=== PATIENT | male | born 1930 | race Caucasian/White ===

== ENCOUNTER → 2016-08-05 | Outpatient (CLI) | payer MEDICARE, OTHER ==
[~2016-08-05] MED LIST: ALIGN; AMOXICILLIN 8751 TAB PO; ARICEPT10 MG PO; ASPIRIN 32325 MG/TAB PO; ATIVAN 1MG T1 MG/TAB PO; BENEFIBER; BENEFIBER PO; CARDI-OMEGA1000 MG PO; CELEXA 20MG20 MG/TAB PO; CENTRUM SILVER1 TA1 PO; CLEOCIN HCL300 MG PO; COLACE 100100 MG/CAP PO; CYMBALTA 30MG30 MG PO; CYMBALTA 60MG60 MG PO; DULCOLAX S10 MG/SUPP RC; ENSURE 237 ML237 ML PO; FIBER; FIBER CHOICE1 CTB PO; FISH OIL1 IU PO; FISH OIL1000 MG PO; GENTLE LAXATIVE10 MG RC; ICAP; ICAPS MV1 TAB PO; LACTAID3000 U PO; LAMICTAL 100MG100 MG PO; LAMICTAL 25MG T25 MG PO; LAMICTAL150 MG PO; LEVAQUIN 5500 MG/TA1 PO; LIPITOR 10MG10 MG PO; LITHIUM CARBON300 MG PO; LYRICA 25MG CAP25 MG PO; LYRICA 50MG CAP50 MG PO; LYRICA 75MG CAP75 MG PO; LYRICA75 MG PO; METAMUCIL1 PDR; MIRALAX PA17 GM/Dose PO; MIRALAX238G PO; MS CONTIN 330 MG/TAB PO; MULTI VITAMINS1 TAB PO; MULTIPLE VITAMI1 CAP PO; MYRBETR25MG PO; NAMENDA 10MG TA10 MG PO; NEURONTIN100 MG/CAP PO; NEURONTIN300 MG/CAP PO; NIACIN500 M3 PO; NIACOR500 MG PO; NORCO 325 MG-51 TAB PO; OMEGA 31000 MG PO; PERIDEX (CHLOR480 ML MM; PREDNISONE20 MG PO; PRILOSEC 20MG20 MG PO; SEROQUEL 2525 MG/TAB PO; SYNTHROID 0.0.025 MG PO; TYLENOL 325MG325 MG PO; TYLENOL 500MG500 MG PO; TYLENOL EXTRA500 M1 PO; ULTRAM 50MG TAB50 MG PO; ULTRAM ER100 MG PO; VITAMIN C BUFF500 MG PO; VITAMIN C500 MG PO; VITAMINC500CH PO; VOLTAREN GEL 1%1 TU TP; WELLBUTRIN SR150 M1 PO; WELLBUTRIN SR150 MG PO; WELLBUTRIN XL150 MG PO; WELLBUTRIN XL300 M1 PO; ZITHROMAX 250M250 MG PO; ZOCOR 20MG20 MG PO; ZOFRAN ODT4 MG PO; [UNRECOGNIZED DRUG - CODE] PO
== END ==
LOC: BHSO 13:13
DX: F31.73 Bipolar disorder, in partial remission, most recent episode manic (principal)

== ENCOUNTER → 2016-08-05 | Outpatient (CLI) | payer MEDICARE, OTHER | LOC: COL.RAD 14:45 | DX: R14.0 Abdominal distension (gaseous) (principal) ==

== ENCOUNTER 2016-09-01 17:39 | Emergency (ER) | payer MEDICARE, OTHER ==
[~2016-09-01] VITALS: Ht 172.7 cm; Wt 72.7 kg
[~2016-09-01 17:39] MED LIST changes: -ALIGN; -ATIVAN 1MG T1 MG/TAB PO; -BENEFIBER; -CLEOCIN HCL300 MG PO; -FISH OIL1000 MG PO; -LAMICTAL150 MG PO; -LEVAQUIN 5500 MG/TA1 PO; -MIRALAX238G PO; -NEURONTIN100 MG/CAP PO; -NEURONTIN300 MG/CAP PO; -NORCO 325 MG-51 TAB PO; -PERIDEX (CHLOR480 ML MM; -SEROQUEL 2525 MG/TAB PO; -VOLTAREN GEL 1%1 TU TP; -ZITHROMAX 250M250 MG PO
[2016-09-01 17:44] VITALS: TEMP 98.3
[2016-09-01 18:24] LABS: BASO # 0.1 (0.0-0.2); BASO % 0.8 % (0.0-2.0); EOS # 0.5 (0.0-0.7); EOS % 4.6 % (0-4.0); GRAN # 7.7 (1.4-6.5); HEMATOCRIT 42.7 % (42.0-52.0); HEMOGLOBIN 13.8 g/dl (13.5-18.0); LYMPH # 2.1 (1.2-3.4); LYMPH % 18.2 % (20.0-51.0); MEAN CELL VOLUME 95 fl (80.0-100.0); MEAN CORPUSCULAR HEMOGLOBIN 31 pg (27.0-31.0); MEAN CORPUSCULAR HGB CONC 32 g/dl (33.0-37.0); MEAN PLATELET VOLUME 9.1 fl (7.4-10.4); MONO # 0.9 (0.1-0.6); MONO % 7.7 % (1.7-9.3); PLATELET COUNT 470 K/mm3 (130-400); RED BLOOD COUNT 4.52 M/mm3 (4.20-5.60); REDCELL DISTRIBUTION WIDTH-CV 14.3 % (11.5-14.5); WHITE BLOOD COUNT 11.4 K/mm3 (4.8-10.8)
[2016-09-01 18:34] LABS: ADJUSTED CALCIUM 9.4 mg/dL (8.4-10.2); ALANINE AMINOTRANSFERASE 27 U/L (21-72); ALBUMIN 3.7 gm/dL (3.5-5.0); ALKALINE PHOSPHATASE 88 U/L (50-136); ANION GAP 15 mmol/L (7-16); BILIRUBIN,TOTAL 0.6 mg/dL (0.0-1.0); BLOOD UREA NITROGEN 26 mg/dL (9-20); CALCIUM 9.2 mg/dL (8.4-10.2); CARBON DIOXIDE 26 mmol/L (22-30); CHLORIDE 101 mmol/L (98-107); CREATININE, serum 0.83 mg/dL (0.66-1.25); GLUCOSE 120 mg/dL (74-106); LIPASE 17 U/L (23-300); POTASSIUM 3.9 mmol/L (3.4-5.0); SODIUM 142 mmol/L (137-145); TOTAL PROTEIN 7.2 gm/dL (6.4-8.2)
[2016-09-01] MEDS ORDERED: NEURONTIN100 MG/CAP PO (18:36)
[2016-09-01] MEDS ORDERED: SEROQUEL 2525 MG/TAB PO (18:41)
[2016-09-01] MEDS ORDERED: WELLBUTRIN XL300 M1 PO (18:41)
[2016-09-01 18:46] LABS: TROPONIN-I < 0.012 ng/mL (0.000-0.034)
[2016-09-01 19:59] LABS: PH 5 (5-8); SQUAMOUS EPITHELIAL 0-2 /hpf; URINE APPEARANCE Hazy; URINE BACTERIA None Seen /hpf; URINE BILIRUBIN Negative (NEGATIVE); URINE BLOOD Negative (NEGATIVE); URINE COLOR Amber; URINE GLUCOSE Negative (NEGATIVE); URINE KETONE Negative (NEGATIVE); URINE RBC 0-2 /hpf; URINE UROBILINOGEN Negative (NEGATIVE); URINE WBC 0-2 /hpf
[2016-09-01 22:50] VITALS: PULSE 60
[2016-09-01 22:51] LABS: CEREBROSPINAL TUBE #1; CSF COLOR PINK
[2016-09-01 22:52] LABS: CSF APPEARANCE HAZY
[2016-09-01 22:53] LABS: CEREBROSPINAL TUBE #4; CSF APPEARANCE CLEAR; CSF COLOR COLORLESS
[2016-09-02 02:30] VITALS: BP 124/90
== END 2016-09-02 02:51 ==
LOC: COL.ER 17:39
PROVIDERS: Emergency Medicine
DX: M54.2 Cervicalgia (principal); R51 Headache; R45.4 Irritability and anger; T40.4X6A Underdosing of other synthetic narcotics, initial encounter; M54.9 Dorsalgia, unspecified; Z86.73 Personal history of transient ischemic attack (TIA), and cerebral infarction without residual deficits; Z91.138 Patient's unintentional underdosing of medication regimen for other reason; Y92.129 Unspecified place in nursing home as the place of occurrence of the external cause; F03.90 Unspecified dementia, unspecified severity, without behavioral disturbance, psychotic disturbance, mood disturbance, and anxiety
CPT/HCPCS: J1170; J1885; J7030

== ENCOUNTER 2016-09-27 18:38 | Inpatient (IN) | payer MEDICARE, OTHER ==
[~2016-09-27] VITALS: Ht 172.7 cm; Wt 85.0 kg
[~2016-09-27 18:38] MED LIST changes: +NEURONTIN100 MG/CAP PO; +SEROQUEL 2525 MG/TAB PO
[2016-09-27 19:20] LABS: BASO # 0.1 (0.0-0.2); BASO % 0.6 % (0.0-2.0); EOS # 0.8 (0.0-0.7); EOS % 5.8 % (0-4.0); GRAN # 10.8 (1.4-6.5); GRAN % 77.3 % (42.2-75.2); HEMATOCRIT 40.3 % (42.0-52.0); HEMOGLOBIN 12.6 g/dl (13.5-18.0); LYMPH # 1.2 (1.2-3.4); LYMPH % 8.8 % (20.0-51.0); MEAN CELL VOLUME 97 fl (80.0-100.0); MEAN CORPUSCULAR HEMOGLOBIN 30 pg (27.0-31.0); MEAN CORPUSCULAR HGB CONC 31 g/dl (33.0-37.0); MEAN PLATELET VOLUME 9.1 fl (7.4-10.4); MONO % 7.1 % (1.7-9.3); PLATELET COUNT 369 K/mm3 (130-400); RED BLOOD COUNT 4.17 M/mm3 (4.20-5.60)
[2016-09-27] MEDS ORDERED: NORCO 325 MG-51 TAB PO (19:23)
[2016-09-27 19:24] LABS: PH 5 (5-8); SQUAMOUS EPITHELIAL 0-2 /hpf; URINE APPEARANCE Clear; URINE BACTERIA None Seen /hpf; URINE BILIRUBIN Negative (NEGATIVE); URINE BLOOD Negative (NEGATIVE); URINE COLOR Yellow; URINE GLUCOSE Negative (NEGATIVE); URINE KETONE Negative (NEGATIVE); URINE RBC 0-2 /hpf; URINE UROBILINOGEN Negative (NEGATIVE); URINE WBC 0-2 /hpf
[2016-09-27] MEDS ORDERED: ATIVAN 1MG T1 MG/TAB PO (19:24)
[2016-09-27] MEDS ORDERED: ALIGN (19:28)
[2016-09-27] MEDS ORDERED: BENEFIBER (19:29)
[2016-09-27 19:31] LABS: ADJUSTED CALCIUM 9.6 mg/dL (8.4-10.2); ALANINE AMINOTRANSFERASE 26 U/L (21-72); ALBUMIN 3.5 gm/dL (3.5-5.0); ALKALINE PHOSPHATASE 79 U/L (50-136); ANION GAP 11 mmol/L (7-16); BILIRUBIN,TOTAL 0.5 mg/dL (0.0-1.0); BLOOD UREA NITROGEN 28 mg/dL (9-20); C-REACTIVE PROTEIN 4.5 mg/dL (0.0-0.9); CALCIUM 9.2 mg/dL (8.4-10.2); CARBON DIOXIDE 33 mmol/L (22-30); CHLORIDE 104 mmol/L (98-107); CREATININE, serum 1.02 mg/dL (0.66-1.25); GLUCOSE 107 mg/dL (74-106); POTASSIUM 4.5 mmol/L (3.4-5.0); SODIUM 147 mmol/L (137-145)
[2016-09-27] MEDS ORDERED: ENSURE 237 ML237 ML PO (19:39)
[2016-09-27 19:42] LABS: TROPONIN-I < 0.012 ng/mL (0.000-0.034)
[2016-09-27 23:29] VITALS: BP 132/52; PULSE 61; TEMP 98.2
[2016-09-28 03:37] VITALS: BP 122/95; PULSE 59; TEMP 98
[2016-09-28] MEDS ORDERED: NEURONTIN300 MG/CAP PO (06:17)
[2016-09-28] MEDS ORDERED: LAMICTAL150 MG PO (06:21)
[2016-09-28] MEDS ORDERED: ARICEPT10 MG PO (06:30)
[2016-09-28] MEDS ORDERED: FISH OIL1000 MG PO (06:31)
[2016-09-28 07:43] LABS: BASO # 0.1 (0.0-0.2); BASO % 0.6 % (0.0-2.0); EOS # 0.9 (0.0-0.7); EOS % 10.9 % (0-4.0); GRAN # 5.2 (1.4-6.5); GRAN % 61.7 % (42.2-75.2); LYMPH # 1.4 (1.2-3.4); LYMPH % 16.7 % (20.0-51.0); MEAN CELL VOLUME 99 fl (80.0-100.0); MEAN CORPUSCULAR HGB CONC 31 g/dl (33.0-37.0); MEAN PLATELET VOLUME 9.2 fl (7.4-10.4); MONO # 0.8 (0.1-0.6); MONO % 9.5 % (1.7-9.3); PLATELET COUNT 330 K/mm3 (130-400); RED BLOOD COUNT 3.65 M/mm3 (4.20-5.60); REDCELL DISTRIBUTION WIDTH-CV 15.3 % (11.5-14.5); WHITE BLOOD COUNT 8.5 K/mm3 (4.8-10.8)
[2016-09-28 07:46] VITALS: BP 135/57; PULSE 59; TEMP 97.6
[2016-09-28 08:01] LABS: CALCIUM 8.5 mg/dL (8.4-10.2); CREATININE, serum 0.94 mg/dL (0.66-1.25); POTASSIUM 4.1 mmol/L (3.4-5.0)
[2016-09-28 08:12] LABS: HEMATOCRIT 36.2 % (42.0-52.0); HEMOGLOBIN 11.1 g/dl (13.5-18.0); MEAN CORPUSCULAR HEMOGLOBIN 30 pg (27.0-31.0)
[2016-09-28 11:36] VITALS: BP 131/55; PULSE 60; TEMP 97.5
[2016-09-28 15:58] VITALS: BP 124/56; PULSE 59; TEMP 97.4
[2016-09-28 20:08] VITALS: BP 143/69; PULSE 60; TEMP 97.6
[2016-09-28 23:43] VITALS: BP 160/70; PULSE 60; TEMP 97.7
[2016-09-29 03:41] VITALS: BP 158/70; PULSE 65; TEMP 97.7
[2016-09-29 07:31] VITALS: BP 149/60; PULSE 61; TEMP 98.3
[2016-09-29 11:52] VITALS: BP 114/52; PULSE 59; TEMP 98
[2016-09-29] MEDS ORDERED: NEURONTIN300 MG/CAP PO (12:52)
[2016-09-29] MEDS ORDERED: MIRALAX238G PO (12:54)
[2016-09-29] MEDS ORDERED: LEVAQUIN 5500 MG/TA1 PO (13:33)
== END 2016-09-29 15:54 | DRG 194 ==
LOC: COL.ER 18:38 → MEDICAL 21:28
PROVIDERS: Emergency Medicine; Family Medicine
DX: J18.9 Pneumonia, unspecified organism (principal); F05 Delirium due to known physiological condition; Z95.0 Presence of cardiac pacemaker; F03.90 Unspecified dementia, unspecified severity, without behavioral disturbance, psychotic disturbance, mood disturbance, and anxiety; F31.9 Bipolar disorder, unspecified; M47.9 Spondylosis, unspecified; G89.29 Other chronic pain; G62.9 Polyneuropathy, unspecified; K59.00 Constipation, unspecified
CPT/HCPCS: 99223-AI; 99233-AI; 99239; J1650; J1956; J2543; J3370; J7030; J7050

== ENCOUNTER → 2016-10-07 | Outpatient (CLI) | payer MEDICARE, OTHER ==
[~2016-10-07] MED LIST changes: +ALIGN; +ATIVAN 1MG T1 MG/TAB PO; +BENEFIBER; +CLEOCIN HCL300 MG PO; +FISH OIL1000 MG PO; +LAMICTAL150 MG PO; +LEVAQUIN 5500 MG/TA1 PO; +MIRALAX238G PO; +NEURONTIN300 MG/CAP PO; +NORCO 325 MG-51 TAB PO; +PERIDEX (CHLOR480 ML MM; +VOLTAREN GEL 1%1 TU TP; +ZITHROMAX 250M250 MG PO
== END ==
LOC: BHSO 10:41
DX: F06.32 Mood disorder due to known physiological condition with major depressive-like episode (principal)

== ENCOUNTER → 2016-10-14 | Outpatient (CLI) | payer MEDICARE, OTHER | LOC: MHCPAIN 09:45 | DX: G89.29 Other chronic pain (principal); M47.812 Spondylosis without myelopathy or radiculopathy, cervical region; M54.12 Radiculopathy, cervical region | CPT/HCPCS: G0463 ==

== ENCOUNTER 2016-10-16 12:16 | Day surgery (SDC) | payer MEDICARE, OTHER ==
[~2016-10-16] VITALS: Ht 172.7 cm; Wt 83.2 kg
[2016-10-16] VITALS (7 sets, daily range): BP systolic 137–152; BP diastolic 58–68; PULSE 58–60; TEMP 97.2–98.5
[~2016-10-16 12:16] MED LIST changes: -CLEOCIN HCL300 MG PO; -PERIDEX (CHLOR480 ML MM; -VOLTAREN GEL 1%1 TU TP; -ZITHROMAX 250M250 MG PO
[2016-10-16] MEDS ORDERED: NEURONTIN100 MG/CAP PO (14:38)
[2016-10-16] MEDS ORDERED: DULCOLAX S10 MG/SUPP RC (14:41)
[2016-10-16] MEDS ORDERED: PERIDEX (CHLOR480 ML MM (14:59)
[2016-10-16] MEDS ORDERED: VOLTAREN GEL 1%1 TU TP (15:18)
== END 2016-10-16 19:00 ==
LOC: SDCO 12:16 → SURG 17:00 → SDCO 19:00
DX: K02.9 Dental caries, unspecified (principal); Z85.46 Personal history of malignant neoplasm of prostate; F31.9 Bipolar disorder, unspecified; G89.29 Other chronic pain; M54.2 Cervicalgia; F03.90 Unspecified dementia, unspecified severity, without behavioral disturbance, psychotic disturbance, mood disturbance, and anxiety; I49.9 Cardiac arrhythmia, unspecified
CPT/HCPCS: OP; J0360; J1100; J1720; J1885; J2405; J2710; J3010

== ENCOUNTER 2016-11-12 12:38 | Observation (INO) | payer MEDICARE, OTHER ==
[~2016-11-12] VITALS: Ht 172.7 cm; Wt 81.2 kg
[~2016-11-12 12:38] MED LIST changes: +PERIDEX (CHLOR480 ML MM; +VOLTAREN GEL 1%1 TU TP
[2016-11-12] MEDS ORDERED: NORCO 325 MG-51 TAB PO (13:16)
[2016-11-12] MEDS ORDERED: NEURONTIN100 MG/CAP PO (13:24)
[2016-11-12 14:04] LABS: BASO # 0.1 (0.0-0.2); BASO % 0.4 % (0.0-2.0); EOS # 0.7 (0.0-0.7); GRAN % 82.7 % (42.2-75.2); HEMATOCRIT 47.3 % (42.0-52.0); LYMPH % 6.1 % (20.0-51.0); MEAN CELL VOLUME 95 fl (80.0-100.0); MEAN CORPUSCULAR HEMOGLOBIN 30 pg (27.0-31.0); MEAN CORPUSCULAR HGB CONC 32 g/dl (33.0-37.0); MEAN PLATELET VOLUME 9.3 fl (7.4-10.4); MONO # 1.1 (0.1-0.6); MONO % 6.3 % (1.7-9.3); PLATELET COUNT 336 K/mm3 (130-400); RED BLOOD COUNT 4.98 M/mm3 (4.20-5.60); REDCELL DISTRIBUTION WIDTH-CV 14.1 % (11.5-14.5); WHITE BLOOD COUNT 16.9 K/mm3 (4.8-10.8)
[2016-11-12 14:11] LABS: ADJUSTED CALCIUM 9.2 mg/dL (8.4-10.2); BILIRUBIN,TOTAL 0.7 mg/dL (0.0-1.0); CALCIUM 9.2 mg/dL (8.4-10.2); CREATININE, serum 0.95 mg/dL (0.66-1.25); POTASSIUM 4.1 mmol/L (3.4-5.0); TOTAL PROTEIN 7.5 gm/dL (6.4-8.2)
[2016-11-12 14:29] LABS: C-REACTIVE PROTEIN 4.3 mg/dL (0.0-0.9)
[2016-11-12 15:33] LABS: PH 5 (5-8); SQUAMOUS EPITHELIAL 0-2 /hpf; URINE APPEARANCE Hazy; URINE BACTERIA Rare /hpf; URINE BILIRUBIN Negative (NEGATIVE); URINE BLOOD Negative (NEGATIVE); URINE COLOR Yellow; URINE GLUCOSE Negative (NEGATIVE); URINE KETONE Negative (NEGATIVE); URINE UROBILINOGEN Negative (NEGATIVE); URINE WBC 0-2 /hpf
[2016-11-12 16:37] VITALS: BP 132/60; PULSE 48; TEMP 98.1
[2016-11-12 18:27] VITALS: BP 156/128; PULSE 81
[2016-11-12 21:42] VITALS: BP 135/55; PULSE 70; TEMP 97.8
[2016-11-13 00:20] VITALS: BP 119/54; PULSE 58; TEMP 97.6
[2016-11-13 04:08] VITALS: BP 144/69; PULSE 58; TEMP 97.9
[2016-11-13 07:26] LABS: BASO # 0.1 (0.0-0.2); BASO % 0.6 % (0.0-2.0); EOS # 0.6 (0.0-0.7); EOS % 7.1 % (0-4.0); GRAN # 6.6 (1.4-6.5); HEMATOCRIT 37.9 % (42.0-52.0); HEMOGLOBIN 11.6 g/dl (13.5-18.0); LYMPH # 0.9 (1.2-3.4); LYMPH % 10.3 % (20.0-51.0); MEAN CELL VOLUME 98 fl (80.0-100.0); MEAN CORPUSCULAR HEMOGLOBIN 30 pg (27.0-31.0); MEAN CORPUSCULAR HGB CONC 31 g/dl (33.0-37.0); MEAN PLATELET VOLUME 9.1 fl (7.4-10.4); MONO # 0.8 (0.1-0.6); MONO % 8.7 % (1.7-9.3); PLATELET COUNT 264 K/mm3 (130-400); RED BLOOD COUNT 3.88 M/mm3 (4.20-5.60); REDCELL DISTRIBUTION WIDTH-CV 14.5 % (11.5-14.5)
[2016-11-13 08:26] VITALS: BP 157/62; PULSE 56; TEMP 98.1
[2016-11-13 11:52] VITALS: BP 130/99; PULSE 60; TEMP 97.5
[2016-11-13 16:40] VITALS: BP 135/100; PULSE 95; TEMP 98.2
[2016-11-13 20:24] VITALS: BP 133/58; PULSE 73; TEMP 98.2
[2016-11-14 00:59] VITALS: BP 139/64; PULSE 60; TEMP 97.9
[2016-11-14 04:28] VITALS: BP 111/69; PULSE 62; TEMP 97.9
[2016-11-14 08:16] VITALS: BP 154/68; PULSE 59; TEMP 98.1
[2016-11-14 12:30] VITALS: BP 128/60; PULSE 60; TEMP 98.1
[2016-11-14] MEDS ORDERED: ZITHROMAX 250M250 MG PO (13:43)
[2016-11-14] MEDS ORDERED: CLEOCIN HCL300 MG PO (13:44)
== END 2016-11-14 15:28 | disposition home or self-care (01) ==
LOC: COL.ER 12:38 → MEDICAL 15:35
PROVIDERS: Emergency Medicine; Nurse Practitioner Family
DX: J18.9 Pneumonia, unspecified organism (principal); J96.01 Acute respiratory failure with hypoxia; F03.90 Unspecified dementia, unspecified severity, without behavioral disturbance, psychotic disturbance, mood disturbance, and anxiety; R54 Age-related physical debility; E87.2 Acidosis; I69.954 Hemiplegia and hemiparesis following unspecified cerebrovascular disease affecting left non-dominant side; F31.9 Bipolar disorder, unspecified; M47.812 Spondylosis without myelopathy or radiculopathy, cervical region; E03.9 Hypothyroidism, unspecified; M19.90 Unspecified osteoarthritis, unspecified site; Z85.46 Personal history of malignant neoplasm of prostate
CPT/HCPCS: G0378; G8978-GP; G8979-GP; G8996-GN; G8997-GN; J0456; J0696; J1650; J2543; J7030; J7050

== ENCOUNTER → 2017-02-17 | Outpatient (CLI) | payer MEDICARE, OTHER ==
[~2017-02-17] MED LIST changes: +CLEOCIN HCL300 MG PO; +ZITHROMAX 250M250 MG PO
== END ==
LOC: BHSO 11:26
DX: F06.32 Mood disorder due to known physiological condition with major depressive-like episode (principal)

== ENCOUNTER → 2017-10-29 | Outpatient (CLI) | payer MEDICARE, OTHER | LOC: BHSO 11:24 | DX: F43.10 Post-traumatic stress disorder, unspecified (principal) | CPT/HCPCS: G0463 ==

== ENCOUNTER 2017-11-27 13:49 | Emergency (ER) | payer MEDICARE, OTHER ==
[2017-11-27 14:24] LABS: BASO # 0.1 (0.0-0.2); BASO % 0.5 % (0.0-2.0); EOS # 0.4 (0.0-0.7); EOS % 2.9 % (0-4.0); GRAN # 9.7 (1.4-6.5); GRAN % 74.6 % (42.2-75.2); HEMATOCRIT 44.5 % (42.0-52.0); HEMOGLOBIN 14.1 g/dl (13.5-18.0); LYMPH % 15.1 % (20.0-51.0); MEAN CELL VOLUME 94 fl (80.0-100.0); MEAN CORPUSCULAR HEMOGLOBIN 30 pg (27.0-31.0); MEAN CORPUSCULAR HGB CONC 32 g/dl (33.0-37.0); MEAN PLATELET VOLUME 9.8 fl (7.4-10.4); MONO # 0.9 (0.1-0.6); MONO % 6.6 % (1.7-9.3); PLATELET COUNT 268 K/mm3 (130-400); RED BLOOD COUNT 4.72 M/mm3 (4.20-5.60); REDCELL DISTRIBUTION WIDTH-CV 14.6 % (11.5-14.5)
[2017-11-27 14:33] LABS: ALBUMIN 3.5 gm/dL (3.5-5.0); BILIRUBIN,TOTAL 0.5 mg/dL (0.0-1.0); CALCIUM 9.1 mg/dL (8.4-10.2); CREATININE, serum 1.01 mg/dL (0.66-1.25); TOTAL PROTEIN 7.7 gm/dL (6.4-8.2)
[2017-11-27] MEDS ORDERED: COLACE 100100 MG/CAP PO (15:03)
[2017-11-27] MEDS ORDERED: TURMERIC500 MG PO (15:05)
[2017-11-27] MEDS ORDERED: ENSURE 237 ML237 ML PO (15:06)
[2017-11-27] MEDS ORDERED: ALIGN (15:06)
[2017-11-27] MEDS ORDERED: LOPRESSOR 225 MG/TAB PO (15:07)
[2017-11-27] MEDS ORDERED: BACTROBAN NASA0.9 GM NS (15:08)
[2017-11-27] MEDS ORDERED: BIOFREEZE 0.2%-1 GE1 TOP (15:10)
[2017-11-27] MEDS ORDERED: VOLTAREN GEL 1%1 TU TP (15:11)
[2017-11-27 16:10] VITALS: TEMP 98.4
[2017-11-27] MEDS ORDERED: LEVAQUIN 750MG750 M1 PO ×2 (16:55)
[2017-11-27 19:30] VITALS: BP 126/52; PULSE 60
[2017-11-28] MEDS ORDERED: LEVAQUIN 750MG750 M1 PO (14:50)
== END 2017-11-27 20:00 | disposition home or self-care (01) ==
LOC: COL.ER 13:49
PROVIDERS: Emergency Medicine
DX: J18.9 Pneumonia, unspecified organism (principal)
CPT/HCPCS: J1956

== ENCOUNTER 2018-03-21 03:06 | Emergency (ER) | payer MEDICARE, OTHER ==
[~2018-03-21] VITALS: Ht 182.9 cm; Wt 77.3 kg
[~2018-03-21 03:06] MED LIST changes: +BACTROBAN NASA0.9 GM NS; +BIOFREEZE 0.2%-1 GE1 TOP; +LEVAQUIN 750MG750 M1 PO; +LOPRESSOR 225 MG/TAB PO; +TURMERIC500 MG PO
[2018-03-21 03:15] VITALS: TEMP 97
[2018-03-21] MEDS ORDERED: ATROPINE SULFATE5 ML OP (05:06)
[2018-03-21] MEDS ORDERED: ROXANOL 20MG20 MG/ML PO (05:35)
[2018-03-21 06:38] VITALS: BP 133/66; PULSE 68
== END 2018-03-21 06:38 | disposition home or self-care, planned readmission (81) ==
LOC: COL.ER 03:06
DX: S06.6X0A Traumatic subarachnoid hemorrhage without loss of consciousness, initial encounter (principal); S01.81XA Laceration without foreign body of other part of head, initial encounter; F03.90 Unspecified dementia, unspecified severity, without behavioral disturbance, psychotic disturbance, mood disturbance, and anxiety; Z86.73 Personal history of transient ischemic attack (TIA), and cerebral infarction without residual deficits; W06.XXXA Fall from bed, initial encounter; Y92.129 Unspecified place in nursing home as the place of occurrence of the external cause